=== PATIENT | female | born 1980 | race Caucasian/White ===

== ENCOUNTER → 2016-10-30 | Outpatient (CLI) | payer OTHER | LOC: M LAB 08:13 | PROVIDERS: ATTEND Physician Assistant Medical | DX: D51.9 Vitamin B12 deficiency anemia, unspecified (principal) ==

== ENCOUNTER → 2017-04-03 | Outpatient (REF) | payer OTHER | LOC: M SFHCWAGY 12:29 | PROVIDERS: ATTEND Nurse Practitioner Family | DX: Z12.4 Encounter for screening for malignant neoplasm of cervix (principal) ==

== ENCOUNTER → 2017-05-09 | Outpatient (CLI) | payer OTHER ==
[2017-05-09 18:28] LABS: FREE T4 0.98 NG/DL (0.76-1.46)
== END ==
LOC: M LRY 11:27
PROVIDERS: ATTEND Physician Assistant Medical
DX: E28.2 Polycystic ovarian syndrome (principal); E04.9 Nontoxic goiter, unspecified; E55.9 Vitamin D deficiency, unspecified

== ENCOUNTER → 2017-11-20 | Outpatient (CLI) | payer OTHER ==
[2017-11-20 11:59] LABS: TOTAL 25(OH) VITAMIN D 43.6 NG/ML (30.0-100.0)
[2017-11-20 12:00] LABS: VITAMIN B12 LEVEL 386 PG/ML (247-911)
[2017-11-20 12:29] LABS: FREE T4 0.96 NG/DL (0.76-1.46)
== END ==
LOC: M LRY 08:17
DX: Z34.80 Encounter for supervision of other normal pregnancy, unspecified trimester (principal)
CPT/HCPCS: 84443

== ENCOUNTER → 2017-11-27 | Outpatient (CLI) | payer OTHER | LOC: M WHC 07:45 | DX: Z12.31 Encounter for screening mammogram for malignant neoplasm of breast (principal); Z80.3 Family history of malignant neoplasm of breast; Z92.0 Personal history of contraception | CPT/HCPCS: 77067 ==

== ENCOUNTER → 2018-05-14 | Outpatient (CLI) | payer OTHER ==
[2018-05-14 08:57] LABS: ANION GAP 5 MEQ/L (8-16); BLOOD UREA NITROGEN 13 MG/DL (7-18); CALCIUM LEVEL 8.7 MG/DL (8.5-10.1); CARBON DIOXIDE LEVEL 28 MEQ/L (21-32); CHLORIDE LEVEL 109 MEQ/L (98-107); CHOLESTEROL LEVEL 182 MG/DL (<200); CHOLESTEROL RISK RATIO 1.876 (<5); CREATININE FOR GFR 0.76 MG/DL (0.55-1.30); FREE T4 0.96 NG/DL (0.76-1.46); GLOMERULAR FILTRATION RATE > 60.0 (>60); GLUCOSE, FASTING 70 MG/DL (70-100); HDL CHOLESTEROL 97 MG/DL (>40); LDL CHOLESTEROL 68 MG/DL (<100); NON-HDL-C 85 MG/DL; POTASSIUM SERUM 4.4 MEQ/L (3.5-5.1); SODIUM LEVEL 142 MEQ/L (136-145); TRIGLYCERIDES LEVEL 83 MG/DL (<150)
[2018-05-14 10:28] LABS: TOTAL 25(OH) VITAMIN D 35.9 NG/ML (30.0-100.0)
== END ==
LOC: M LAB 07:40
DX: E28.2 Polycystic ovarian syndrome (principal); E04.9 Nontoxic goiter, unspecified; E55.9 Vitamin D deficiency, unspecified
CPT/HCPCS: 84443

== ENCOUNTER → 2018-05-30 | Outpatient (CLI) | payer OTHER ==
[~2018-05-30] MED LIST: PROHANCE 279.3MG/ML 15ML VIAL (A9576) As Ordered; PROHANCE 279.3MG/ML 5ML VIAL (A9576) As Ordered
== END ==
LOC: M RAD 12:15
DX: Z12.31 Encounter for screening mammogram for malignant neoplasm of breast (principal); Z80.3 Family history of malignant neoplasm of breast
CPT/HCPCS: A9576

== ENCOUNTER → 2018-07-14 | Outpatient (REF) | payer OTHER | LOC: M SFHCLERA 09:38 | DX: J02.9 Acute pharyngitis, unspecified (principal) ==

== ENCOUNTER → 2018-11-26 | Outpatient (CLI) | payer OTHER ==
--- NOTE | 2018-11-26 09:24 | REPMRS ---
Patient History The patient states she had a clinical breast exam in 11/2018. Patient is nulliparous. Family history of breast cancer in paternal grandmother. Taking hormonal contraceptives for 4 years 6 months. 3D TOMOSYNTHESIS WAS PERFORMED. Digital Woman Screen Mammo: November 26, 2018 - Exam #: [id number] Bilateral CC and MLO view(s) were taken. Technologist: Vy Kelly, Technologist Prior study comparison: November 27, 2017, digital woman screen mammo performed at [facility]. FINDINGS: The breast tissue is heterogeneously dense. This may lower the sensitivity of mammography. There has been no change in the appearance of the mammogram from the prior studies. There is a moderate amount of residual fibroglandular tissue which is fairly symmetric. There is no interval development of dominant mass, areas of architectural distortion, or clustered microcalcification typical of malignancy. Assessment: BI-RADS/ACR category 1 mammogram. Negative Mammogram. Recommendation Routine screening mammogram in 1 year (for women over age 40). This mammogram was interpreted with the aid of an FDA-approved computer-aided dectection system. THE LIFETIME RISK OF BREAST CANCER IS 22.5%, THEREFORE SUPPLEMENTAL SCREENING MRI OF THE BREASTS IS RECOMMENDED. Electronically Signed By: Kashmir Briceno MD 11/26/18 0927
== END ==
LOC: M WHC 07:34
PROVIDERS: ATTEND Nurse Practitioner Women's Health
DX: Z12.31 Encounter for screening mammogram for malignant neoplasm of breast (principal); Z80.3 Family history of malignant neoplasm of breast; Z79.3 Long term (current) use of hormonal contraceptives

== ENCOUNTER → 2019-05-09 | Outpatient (CLI) | payer OTHER ==
[2019-05-09 16:43] LABS: BLOOD UREA NITROGEN 11 MG/DL (7-18); CALCIUM LEVEL 8.7 MG/DL (8.5-10.1); CARBON DIOXIDE LEVEL 26 MEQ/L (21-32); CHLORIDE LEVEL 108 MEQ/L (98-107); CHOLESTEROL LEVEL 167 MG/DL (<200); CHOLESTEROL RISK RATIO 2.087 (<5); CREATININE FOR GFR 0.76 MG/DL (0.55-1.30); GLOMERULAR FILTRATION RATE > 60.0 (>60); GLUCOSE, FASTING 72 MG/DL (70-100); HDL CHOLESTEROL 80 MG/DL (>40); LDL CHOLESTEROL 73 MG/DL (<100); NON-HDL-C 87 MG/DL; POTASSIUM SERUM 3.9 MEQ/L (3.5-5.1); SODIUM LEVEL 140 MEQ/L (136-145); TRIGLYCERIDES LEVEL 68 MG/DL (<150)
== END ==
LOC: M LRY 10:55
PROVIDERS: ATTEND Internal Medicine Endocrinology, Diabetes & Metabolism
DX: E28.2 Polycystic ovarian syndrome (principal); E04.9 Nontoxic goiter, unspecified; E55.9 Vitamin D deficiency, unspecified

== ENCOUNTER → 2019-05-23 | Outpatient (CLI) | payer OTHER ==
[~2019-05-23] MED LIST changes: -PROHANCE 279.3MG/ML 15ML VIAL (A9576) As Ordered; +PROHANCE 279.3MG/ML 15ML VIAL (A9576) As Ordered ONE; -PROHANCE 279.3MG/ML 5ML VIAL (A9576) As Ordered; +PROHANCE 279.3MG/ML 5ML VIAL (A9576) As Ordered ONE
--- NOTE | 2019-05-23 18:46 | REP ---
Bilateral Breast MRI study without and with IV gadolinium: History: High risk breast cancer screening. Dense breast tissue seen mammographically. Comparison bilateral breast MRI study May 30, 2018. Estimated lifetime breast cancer risk assessment is 22.5% by Tyrer Cuzick model. Technique: 3 Apple MRI imaging was performed with a dedicated breast coil. Axial, coronal, and sagittal T1 and T2-weighted scans were obtained with and without fat saturation in the usual fashion. The study includes dynamically acquired post gadolinium enhanced imaging subtraction imaging. Maximal intensity projection and multiplanar re-formation imaging is included as well. The study was interpreted with the aid of [employer], an FDA approved computer-aided detection (CAD) software program, on a dedicated breast MRI work station. The gadolinium enhancement dose is 20 mL of intravenous ProHance. Findings: T2-weighted inversion recovery images show no evidence of axillary lymphadenopathy or significant cystic change. There is mild pattern of fibroglandular tissue bilaterally. There is a mild pattern of background parenchymal enhancement again seen. No suspicious morphologic abnormality is seen in either breast on high-resolution bilateral T1 and T2-weighted scans. Dynamically acquired sequential post contrast images show no suspicious focus of enhancement or washout in either breast to suggest malignancy. Subtraction images show no additional abnormality. Impression: BIRADS category 1 negative bilateral breast imaging. Repeat screening breast MRI study recommended 1 year. Electronically Signed by Efrain Vigil MD 05/24/2019 07:47 A
== END ==
LOC: M RAD 14:25
PROVIDERS: ATTEND Nurse Practitioner Women's Health
DX: R92.2 Inconclusive mammogram (principal); Z80.3 Family history of malignant neoplasm of breast
CPT/HCPCS: A9576; C8908

== ENCOUNTER → 2019-08-29 | Outpatient (CLI) | payer OTHER ==
--- NOTE | 2019-08-29 16:30 | REP ---
Right foot series: Four views. History: Right foot pain. Findings: Four views of the right foot demonstrate overall normal mineralization. There is Achilles calcaneal spurring. No fracture or subluxation is seen. Impression: Heel spur. No acute bony abnormality. Electronically Signed by Efrain Vigil MD 08/29/2019 04:20 P
== END ==
LOC: M LRY 15:45
PROVIDERS: ATTEND Nurse Practitioner Family
DX: M77.31 Calcaneal spur, right foot (principal)

== ENCOUNTER → 2019-12-19 | Outpatient (REF) | payer OTHER | LOC: M SFHCWAGY 17:12 | PROVIDERS: ATTEND Nurse Practitioner Women's Health | DX: Z12.4 Encounter for screening for malignant neoplasm of cervix (principal) | CPT/HCPCS: 87624; G0123 ==

== ENCOUNTER → 2019-12-19 | Outpatient (CLI) | payer OTHER ==
--- NOTE | 2019-12-19 15:56 | REPMRS ---
Patient History The patient states she had a clinical breast exam in December 2019. Family history of breast cancer in paternal grandmother. Taking hormonal contraceptives for 4 years 6 months. Digital Woman Screen Mammo: December 19, 2019 - Exam #: [id number] Bilateral CC and MLO view(s) were taken. Technologist: Nadia Dodge Technologist Prior study comparison: November 26, 2018, bilateral digital woman screen mammo performed at [facility]. November 27, 2017, digital woman screen mammo performed at [facility]. FINDINGS: There are scattered fibroglandular densities. The Volpara volumetric breast density category is:B. There has been no change in the appearance of the mammogram from the prior studies. There is a mild amount of scattered fibroglandular density which is fairly symmetric. There is no interval development of dominant mass, architectural distortion, or grouped microcalcification suggestive of malignancy. 3-D tomosynthesis shows no additional findings. Assessment: BI-RADS/ACR category 1 mammogram. Negative Mammogram. Recommendation Breast MRI of both breasts in 6 months. Routine screening mammogram of both breasts in 1 year (for women over age 40). This patient's Lifetime Breast Cancer Risk is estimated at 22.4 %. Annual screening Breast MRI scanniing is recommended for patient's whose lifetime risk assessment is over 20%. This mammogram was interpreted with the aid of an FDA-approved computer-aided dectection system. Electronically Signed By: Jitendra Vigil MD 12/19/19 0031
== END ==
LOC: M WHC 14:53
PROVIDERS: ATTEND Nurse Practitioner Women's Health
DX: Z12.31 Encounter for screening mammogram for malignant neoplasm of breast (principal)

== ENCOUNTER → 2020-05-18 | Outpatient (CLI) | payer OTHER ==
[2020-05-18 11:17] LABS: ALBUMIN 3.2 GM/DL (3.2-5.2); ALT/SGPT 67 U/L (12-78); BILIRUBIN,TOTAL 0.2 MG/DL (0.2-1.0); BLOOD UREA NITROGEN 15 MG/DL (7-18); CALCIUM LEVEL 9.1 MG/DL (8.5-10.1); CARBON DIOXIDE LEVEL 26 MEQ/L (21-32); CHLORIDE LEVEL 108 MEQ/L (98-107); CHOLESTEROL LEVEL 200 MG/DL (<200); CHOLESTEROL RISK RATIO 2.531 (<5); CREATININE FOR GFR 0.81 MG/DL (0.55-1.30); GLOMERULAR FILTRATION RATE > 60.0 (>60); GLUCOSE, FASTING 68 MG/DL (70-100); HDL CHOLESTEROL 79 MG/DL (>40); LDL CHOLESTEROL 108 MG/DL (<100); NON-HDL-C 121 MG/DL; POTASSIUM SERUM 4.4 MEQ/L (3.5-5.1); SODIUM LEVEL 140 MEQ/L (136-145); TOTAL PROTEIN 6.8 GM/DL (6.4-8.2); TRIGLYCERIDES LEVEL 65 MG/DL (<150)
[2020-05-18 12:10] LABS: HEMOGLOBIN A1c 5.3 %
== END ==
LOC: M LAB 08:03
PROVIDERS: ATTEND Nurse Practitioner Family
DX: E28.2 Polycystic ovarian syndrome (principal); E55.9 Vitamin D deficiency, unspecified; E04.9 Nontoxic goiter, unspecified

== ENCOUNTER → 2020-07-15 | Outpatient (CLI) | payer OTHER ==
[~2020-07-15] MED LIST changes: -PROHANCE 279.3MG/ML 15ML VIAL (A9576) As Ordered ONE; +PROHANCE 279.3MG/ML 15ML VIAL As Ordered ONE; -PROHANCE 279.3MG/ML 5ML VIAL (A9576) As Ordered ONE; +PROHANCE 279.3MG/ML 5ML VIAL As Ordered ONE
--- NOTE | 2020-07-15 10:41 | REP ---
INDICATION: FAM HX OF BREAST CA, DENSE. COMPARISON: Comparison mammography is from December 19, 2019. Comparison MRI study of the breasts performed May 23, 2019. TECHNIQUE: Three Apple MRI imaging was performed with a dedicated breast coil. Axial, coronal, and sagittal T1 and T2 weighted scans were obtained with and without fat saturation in the usual fashion. The study includes dynamically acquired post gadolinium-enhanced imaging with image subtraction. Maximum intensity projection and multi planar reformation imaging is included as well. This study is interpreted with the aid of [employer], an FDA approved computer aided detection (CAD) software program, on a dedicated breast MRI workstation. The gadolinium enhancement dose is 20 mL of intravenous ProHance. The post-contrast dynamic sequences had to be aborted after the 3rd post contrast injection acquisition due to patient distress or anxiety in the scanner. This is not felt to have adversely affected the quality of the study in a significant way. The remainder of the study sequences were successfully acquired. FINDINGS: There is a mild pattern of fibroglandular tissue bilaterally and symmetric. There is mild background parenchymal enhancement again noted unchanged. Pre and post contrast high-resolution T1 and T2 weighted scans show no suspicious morphologic abnormality in either breast. The 3 dynamically acquired post contrast sequences show no suspicious area of enhancement. Delayed post-contrast study shows no significant additional finding. Subtraction images show no abnormality. IMPRESSION: Stable BI-RADS category 1-findings. Repeat screening breast MRI study recommended in 1 year. <Electronically signed by Jitendra Vigil > 07/15/20 1038
== END ==
LOC: M RAD 07:49
PROVIDERS: ATTEND Nurse Practitioner Women's Health
DX: N64.89 Other specified disorders of breast (principal); Z80.3 Family history of malignant neoplasm of breast

== ENCOUNTER → 2021-04-21 | Outpatient (CLI) | payer OTHER ==
--- NOTE | 2021-04-21 08:18 | REPMRS ---
Patient History The patient states she has not had a clinical breast exam in over a year. Patient is nulliparous. Family history of breast cancer in paternal grandmother. Taking hormonal contraceptives for 4 years 6 months. Patient states no breast complaints today. Patient has signed MRS History Sheet. Digital Woman Screen Mammo: April 21, 2021 - Exam #: [id number] Bilateral CC and MLO view(s) were taken. Technologist: Nadia Dodge, Technologist Prior study comparison: December 19, 2019, bilateral digital woman screen mammo performed at [facility]. November 26, 2018, bilateral digital woman screen mammo performed at [facility]. FINDINGS: There are scattered fibroglandular densities. Screening. Digital screening (2D) mammography was performed bilaterally in the CC and MLO projections. Additionally, breast tomosynthesis (3D mammography) was performed bilaterally in the CC and MLO projections. Todays exam was compared to the prior exam/exams. By history, the patient has no complaints of a palpable breast abnormality or other significant breast complaints. The breasts are unchanged in size and shape. There are no cholo-soft tissue densities or spiculated masses. There is no internal architectural distortion. There are no suspicious cholo-calcific clusters. Skin thickening or nipple retraction is not present. IMPRESSION: BI-RADS Category 2- Benign Findings. There is no evidence of malignant alteration of the breasts. Followup examination recommended in one year. The Volpara volumetric breast density category is B, there are scattered areas of fibroglandular densities. This mammogram was read with the assistance of [facility] [employer],an FDA approved computer aided detection system for mammography. The lifetime Tyrer-Cuzick score is 22.3 % Due to the Tyrer Cuzick score of 20% or greater, MRI breast screening is warranted. Negative x-ray reports should not delay surgical consultation if a dominant or clinically suspicious mass is present. Not all breast cancers can be identified by mammography. Therefore, we recommend that you continue to perform regular breast self-examination and physical examination and then promptly contact your physician of any concerns or changes. Adenosis and dense breasts may obscure an underlying neoplasm. Assessment: BI-RADS/ACR category 2 mammogram. Benign Findings. Recommendation Routine screening mammogram of both breasts in 1 year. Electronically Signed By: Wong Johnson, 04/21/21 0818
== END ==
LOC: M WHC 07:12
PROVIDERS: ATTEND Nurse Practitioner Women's Health
DX: Z12.31 Encounter for screening mammogram for malignant neoplasm of breast (principal); Z80.3 Family history of malignant neoplasm of breast; Z91.89 Other specified personal risk factors, not elsewhere classified; Z79.3 Long term (current) use of hormonal contraceptives

== ENCOUNTER → 2021-06-01 | Outpatient (CLI) | payer OTHER ==
[2021-06-01 08:24] LABS: ALBUMIN 3.7 GM/DL (3.2-5.2); ALT/SGPT 114 U/L (12-78); BILIRUBIN,TOTAL 0.4 MG/DL (0.2-1.0); BLOOD UREA NITROGEN 15 MG/DL (7-18); CALCIUM LEVEL 9.4 MG/DL (8.5-10.1); CARBON DIOXIDE LEVEL 27 MEQ/L (21-32); CHLORIDE LEVEL 110 MEQ/L (98-107); CHOLESTEROL LEVEL 156 MG/DL (<200); CHOLESTEROL RISK RATIO 2.108 (<5); CREATININE FOR GFR 0.83 MG/DL (0.55-1.30); GLOMERULAR FILTRATION RATE > 60.0 (>60); GLUCOSE, FASTING 89 MG/DL (70-100); HDL CHOLESTEROL 74 MG/DL (>40); LDL CHOLESTEROL 75 MG/DL (<100); NON-HDL-C 82 MG/DL; POTASSIUM SERUM 4.3 MEQ/L (3.5-5.1); SODIUM LEVEL 142 MEQ/L (136-145); TOTAL PROTEIN 7.1 GM/DL (6.4-8.2); TRIGLYCERIDES LEVEL 35 MG/DL (<150)
[2021-06-01 11:57] LABS: TOTAL 25(OH) VITAMIN D 41.9 NG/ML (30.0-100.0)
[2021-06-01 11:58] LABS: TESTOSTERONE 49 NG/DL (14-76)
== END ==
LOC: M LAB 07:32
PROVIDERS: ATTEND Nurse Practitioner Family
DX: E28.2 Polycystic ovarian syndrome (principal); E55.9 Vitamin D deficiency, unspecified; E04.9 Nontoxic goiter, unspecified

== ENCOUNTER → 2021-07-23 | Outpatient (CLI) | payer OTHER ==
[2021-07-23 07:36] LABS: ALBUMIN 3.5 GM/DL (3.2-5.2); ALT/SGPT 39 U/L (12-78); BILIRUBIN,DIRECT 0.2 MG/DL (0.0-0.2); BILIRUBIN,TOTAL 0.7 MG/DL (0.2-1.0); TOTAL PROTEIN 6.8 GM/DL (6.4-8.2)
[2021-07-23 09:49] LABS: HEPATITIS B SURFACE ANTIGEN NEGATIVE (NEGATIVE)
[2021-07-23 10:16] LABS: HEPATITIS B CORE ANTIBODY IGM NEGATIVE (NEGATIVE); HEPATITIS C VIRUS ABY INDEX 0.1 INDEX (<0.8)
== END ==
LOC: M LAB 06:43
PROVIDERS: ATTEND Nurse Practitioner Family
DX: R94.5 Abnormal results of liver function studies (principal); E28.2 Polycystic ovarian syndrome

== ENCOUNTER → 2021-08-02 | Outpatient (CLI) | payer OTHER | LOC: M RAD 08:52 | PROVIDERS: ATTEND Nurse Practitioner Women's Health | DX: R92.2 Inconclusive mammogram (principal); Z80.3 Family history of malignant neoplasm of breast; Z91.89 Other specified personal risk factors, not elsewhere classified | CPT/HCPCS: A9576; C8908 ==

== ENCOUNTER → 2022-08-05 | Outpatient (CLI) | payer OTHER ==
[2022-08-05 07:52] LABS: ALBUMIN 3.4 G/DL (3.2-5.2); ALKALINE PHOSPHATASE 74 U/L (46-116); ALT/SGPT 35 U/L (7.0-40); AST/SGOT 27 U/L (<34); BILIRUBIN,TOTAL 0.3 MG/DL (0.3-1.2); BLOOD UREA NITROGEN 15 MG/DL (9-23); CALCIUM LEVEL 9.5 MG/DL (8.5-10.1); CARBON DIOXIDE LEVEL 26 MMOL/L (20-31); CHLORIDE LEVEL 106 MMOL/L (98-107); CHOLESTEROL LEVEL 155 MG/DL (<200); CHOLESTEROL RISK RATIO 2.17 (<5); GLOMERULAR FILTRATION RATE > 60.0 (>60); GLUCOSE, FASTING 85 MG/DL (60-100); HDL CHOLESTEROL 71.4 MG/DL (>40); NON-HDL-C 84 MG/DL; POTASSIUM SERUM 4.4 MMOL/L (3.5-5.1); SODIUM LEVEL 139 MMOL/L (136-145); TOTAL PROTEIN 6.5 G/DL (5.7-8.2); TRIGLYCERIDES LEVEL 53 MG/DL (<150)
[2022-08-05 07:53] LABS: THYROID STIMULATING HORMONE 3.446 uIU/ML (0.55-4.78); TOTAL 25(OH) VITAMIN D 38.1 NG/ML (20.0-100.0)
[2022-08-05 07:54] LABS: FREE T4 1.03 NG/DL (0.89-1.76); TESTOSTERONE 43 NG/DL (14-76)
== END ==
LOC: M LAB 06:52
PROVIDERS: ATTEND Nurse Practitioner Family
DX: E28.2 Polycystic ovarian syndrome (principal)

== ENCOUNTER → 2023-09-26 | Outpatient (CLI) | payer OTHER ==
[2023-09-26 09:44] LABS: ALBUMIN 3.5 G/DL (3.2-5.2); ALKALINE PHOSPHATASE 101 U/L (46-116); ALT/SGPT 23 U/L (7.0-40); AST/SGOT 16 U/L (<34); BILIRUBIN,TOTAL 0.4 MG/DL (0.3-1.2); BLOOD UREA NITROGEN 13 MG/DL (9-23); CALCIUM LEVEL 8.9 MG/DL (8.5-10.1); CARBON DIOXIDE LEVEL 28 MMOL/L (20-31); CHLORIDE LEVEL 108 MMOL/L (98-107); CHOLESTEROL LEVEL 159 MG/DL (<200); CHOLESTEROL RISK RATIO 2.89 (<5); CREATININE FOR GFR 0.91 MG/DL (0.55-1.30); GLOMERULAR FILTRATION RATE > 60.0 (>58); GLUCOSE, FASTING 82 MG/DL (60-100); HDL CHOLESTEROL 54.9 MG/DL (>40); LDL CHOLESTEROL 89.1 MG/DL (<100); NON-HDL-C 104.1 MG/DL; POTASSIUM SERUM 4.4 MMOL/L (3.5-5.1); SODIUM LEVEL 141 MMOL/L (136-145); TOTAL PROTEIN 6.5 G/DL (5.7-8.2); TRIGLYCERIDES LEVEL 75 MG/DL (<150)
[2023-09-26 09:46] LABS: FREE T4 0.94 NG/DL (0.89-1.76); TOTAL 25(OH) VITAMIN D 38.8 NG/ML (20.0-100.0)
[2023-09-26 09:54] LABS: HEMOGLOBIN A1c 5.2 % (4.0-6.0)
== END ==
LOC: M LAB 08:25
PROVIDERS: ATTEND Nurse Practitioner Family
DX: E28.2 Polycystic ovarian syndrome (principal); E04.9 Nontoxic goiter, unspecified; E55.9 Vitamin D deficiency, unspecified

== ENCOUNTER → 2024-09-25 | Outpatient (CLI) | payer OTHER ==
[2024-09-25 07:55] LABS: ALBUMIN 3.5 G/DL (3.2-5.2); ALKALINE PHOSPHATASE 104 U/L (35-104); ALT/SGPT 48 U/L (7.0-40); AST/SGOT 14 U/L (<34); BILIRUBIN,TOTAL 0.3 MG/DL (0.3-1.2); BLOOD UREA NITROGEN 17 MG/DL (9-23); CALCIUM LEVEL 9.3 MG/DL (8.5-10.1); CARBON DIOXIDE LEVEL 28 MMOL/L (20-31); CHLORIDE LEVEL 106 MMOL/L (98-107); CHOLESTEROL LEVEL 159 MG/DL (<200); CHOLESTEROL RISK RATIO 2.94 (<5); CREATININE FOR GFR 0.95 MG/DL (0.55-1.30); GLOMERULAR FILTRATION RATE > 60.0 (>58); GLUCOSE, FASTING 88 MG/DL (60-100); LDL CHOLESTEROL 88.2 MG/DL (<100); POTASSIUM SERUM 4.4 MMOL/L (3.5-5.1); SODIUM LEVEL 143 MMOL/L (136-145); TOTAL PROTEIN 6.9 G/DL (5.7-8.2); TRIGLYCERIDES LEVEL 84 MG/DL (<150)
[2024-09-25 07:58] LABS: TOTAL 25(OH) VITAMIN D 46.2 NG/ML (20.0-100.0)
== END ==
LOC: M LAB 06:29
PROVIDERS: ATTEND Nurse Practitioner Family
DX: E28.2 Polycystic ovarian syndrome (principal); E04.9 Nontoxic goiter, unspecified; E55.9 Vitamin D deficiency, unspecified